=== PATIENT | male | born 1995 ===

== ENCOUNTER 2018-02-24 05:33 | Inpatient (IN) | payer MEDICAID, OTHER ==
[2018-02-24 05:34] VITALS: BMI 26.6
--- NOTE | 2018-02-24 05:40 | C.PDOC ---
History Of Present Illness 22 yr old male w/ hx of schizophrenia p/w hearing voices. Pt notes hearing voices over the past couple of days. States that he sometimes takes medications when he hears voices. Not on meds consistently for schizophrenia. No SI or HI. Voices are telling him to hurt himself. No fever, chills or night sweats No chest pain or sob No GI or complaints No abd pain No rashes No cough No other complaints <Chuy Terry - Last Filed: 02/24/18 05:49> <Chuy Terry - Last Filed: 02/24/18 05:49> <Magaly Pa - Last Filed: 02/24/18 10:48> Time Seen by Provider: 02/24/18 05:40 Past Medical History - Medical History PMH: Anxiety, Depression, Schizophrenia Denies: Diabetes, Hepatitis, HIV, HTN, Chronic Kidney Disease, Seizures, Sex ually Transmitted Disease - [facility] Procedures GROUP PSYCHOTHERAPY (06/30/17) INDIVIDUAL PSYCHOTHERAPY, BEHAVIORAL (06/30/17) INDIVIDUAL PSYCHOTHERAPY, COGNITIVE-BEHAVIORAL (01/06/17) Family History: States: Unknown Family Hx - Social History Hx Tobacco Use: Yes Hx Alcohol Use: No Hx Substance Use: No - Immunization History Hx Tetanus Toxoid Vaccination: No Hx Influenza Vaccination: No Hx Pneumococcal Vaccination: No <Chuy Terry - Last Filed: 02/24/18 05:49> Vital Signs: Last Vital Signs Temp 98.4 F 02/24/18 07:38 Pulse 108 H 02/24/18 07:38 Resp 15 02/24/18 07:38 BP 126/79 02/24/18 07:38 Pulse Ox 99 02/24/18 07:38 - [facility] Procedures GROUP PSYCHOTHERAPY (06/30/17) INDIVIDUAL PSYCHOTHERAPY, BEHAVIORAL (06/30/17) INDIVIDUAL PSYCHOTHERAPY, COGNITIVE-BEHAVIORAL (01/06/17) <Magaly Pa - Last Filed: 02/24/18 10:48> Review Of Systems Constitutional: Negative for: Fever, Chills, Sweats, Weakness, Malaise Eyes: Negative for: Pain, Vision Change ENT: Negative for: Ear Pain Cardiovascular: Negative for: Chest Pain, Palpitations Respiratory: Negative for: Cough, Shortness of Breath Gastrointestinal: Negative for: Nausea, Vomiting, Constipation, Melena Genitourinary: Negative for: Dysuria, Frequency, Hematuria Musculoskeletal: Negative for: Neck Pain, Shoulder Pain Skin: Negative for: Rash, Lesions, Jaundice Neurological: Negative for: Weakness, Numbness, Altered Mental Status Psych: Positive for: Other (hearing voices). Negative for: Anxiety, Depression, Suicidal ideation <Chuy Terry - Last Filed: 02/24/18 05:49> Physical Exam - Physical Exam Appears: Well, Non-toxic, No Acute Distress Skin: Normal Color, Warm, No Diaphoretic Head: Atraumatic, Normacephalic, No Tenderness, No Abrasion, No Laceration Eye(s): bilateral: Normal Inspection, PERRL, EOMI Ear(s): Bilateral: Normal Nose: Normal Oral Mucosa: Moist Tongue: Normal Appearing Lips: Normal Appearing Throat: Normal, No Erythema Neck: Normal, Normal ROM, No Midline Cervical Tenderness (no meningeal signs), Supple, Other Chest: Symmetrical, No Deformity Cardiovascular: Rhythm Regular Respiratory: Normal Breath Sounds Gastrointestinal/Abdominal: Normal Exam Back: Normal Inspection, No CVA Tenderness Extremity: Normal ROM Neurological/Psych: Oriented x3, Normal Speech, Normal Cognition, Normal Cranial Nerves, No Cerebellar Signs, Normal Motor Gait: Steady Extremity: Right: No Drift, Left: No Drift, Upper: No Drift, Lower: No Drift <Chuy Terry - Last Filed: 02/24/18 05:49> ED Course And Treatment - Laboratory Results Result Diagrams: 02/24/18 09:52 02/24/18 06:16 ECG: Interpreted By Ga ECG Rhythm: Sinus Tachycardia Rate From EC O2 Sat by Pulse Oximetry: 99 Pulse Ox Interpretation: Normal - Radiology CXR: Interpreted by Me CXR Interpretation: Yes: No Acute Disease <Magaly Pa - Last Filed: 02/24/18 10:48> Progress - Re-Evaluation Re-evaluation Note: 02/24/18 07:00 s/o FROM DR TERRY PENDING FLU, CXR, IVF. WBC 21. NO FEVER, FOCAL SIGNS INFXN. APPEARS COMFORTABLE NONTOXIC 02/24/18 08:06 HR 100 S/P NS 1L. NEG CXR, FLU 02/24/18 10:27 EXAM UNCH INITIAL. HR IMPROVED S/O NS X 2L. NO FEVER. NO SIGNS INFXN DURING ER EVAL. MED CLEAR FOR CRISIS EVAL, RECOMMEND MEDICINE CONSULT PRN FOR FU CX, WBC. - Data Reviewed Data Reviewed: Lab, Diagnostic imaging, EKG, Old records <Magaly Pa - Last Filed: 02/24/18 10:48> Medical Decision Making Medical Decision Makin yr old male w/ hx of schizophrenia p/w hearing voices. Intermittently on meds. No meningeal signs. no fall or trauma. Will seek medical clearance. Crisis to see pt EKG 108, NSR. no stemi <Chuy Terry - Last Filed: 02/24/18 05:49> Disposition <Chuy Terry - Last Filed: 02/24/18 05:49> Counseled Patient/Family Regarding: Studies Performed, Diagnosis - Disposition Disposition Time: 10:38 <Magaly Pa - Last Filed: 02/24/18 10:48> - Disposition Disposition: HOSPITALIZED Condition: SERIOUS - Clinical Impression Clinical Impression: Schizoaffective disorder
[2018-02-24 06:10] LABS: BASO # 0.1 K/uL (0.0-0.2); BASO % 0.3 % (0.0-2.0); EOS # 0.1 K/uL (0.0-0.7); EOS % 0.3 % (0.0-4.0); LYMPH # 1.6 K/uL (1.0-4.3); LYMPH % 7.3 % (20.0-40.0); MEAN CELL VOLUME 72.3 fL (80.0-94.0); MEAN CORPUSCULAR HEMOGLOBIN 24.3 pg (27.0-31.0); MEAN CORPUSCULAR HGB CONC 33.6 g/dL (33.0-37.0); MEAN PLATELET VOLUME 8.6 fL (7.2-11.7); MONO # 1.2 K/uL (0.0-0.8); MONO % 5.4 % (0.0-10.0); NEUT # 18.6 K/uL (1.8-7.0); NEUT % 86.7 % (50.0-75.0); NRBC % 0.1 % (0.0-2.0); PLATELET COUNT 259 K/uL (130-400); RBC 5.78 Mil/uL (4.40-5.90); RED CELL DISTRIBUTION WIDTH 14.2 % (11.5-14.5); WHITE BLOOD COUNT 21.5 K/uL (4.8-10.8)
[2018-02-24 06:22] LABS: GRANULAR CAST 7 /lpf (0-1); SQUAMOUS EPITHIAL < 1 /hpf (0-5); URINE BACTERIA RARE (<OCC); URINE BILIRUBIN NEGATIVE (NEGATIVE); URINE BLOOD NEGATIVE (NEGATIVE); URINE CLARITY Clear (Clear); URINE COLOR Yellow (YELLOW); URINE GLUCOSE (UA) NORMAL (Normal); URINE LEUKOCYTE ESTERASE NEG Leu/uL (Negative); URINE PROTEIN 1+ mg/dL (NEGATIVE); URINE UROBILINOGEN NORMAL mg/dL (0.2-1.0)
[2018-02-24 06:31] LABS: BARBITURATES, UR NEGATIVE (NEGATIVE); BENZODIAZEPINES, UR NEGATIVE (NEGATIVE); OPIATES, UR NEGATIVE (NEGATIVE); PHENCYCLIDINE, UR NEGATIVE (NEGATIVE)
[2018-02-24 06:41] LABS: ACETAMINOPHEN < 10.0 ug/mL (10.0-30.0); SALICYLATE < 1.0 mg/dL 1
[2018-02-24 06:43] LABS: ALB/GLOB RATIO 1.2 (1.0-2.1); ALBUMIN 4.5 g/dL (3.5-5.0); ALT/SGPT 47 U/L (21-72); AST/SGOT 31 U/L (17-59); BLOOD UREA NITROGEN 7 mg/dL (9-20); CALCIUM 8.9 mg/dl (8.6-10.4); GFR NON-AFRICAN AMERICAN > 60
[2018-02-24] MEDS ORDERED: Sodium Chloride 0.9% 1,000 ML IV ONE (07:56)
[2018-02-24 08:14] LABS: BANDS 1 % (0-2); LYMPHOCYTE 6 % (20-40); MONOCYTE 4 % (0-10); NEUTROPHIL 89 % (50-75); TOTAL CELLS COUNTED 100
[2018-02-24 08:15] LABS: PLATELET ESTIMATE NORMAL (NORMAL)
[2018-02-24] MEDS: Sodium Chloride 0.9% 1,000 ML IV SCH (08:26)
--- NOTE | 2018-02-24 09:49 | RAD ---
HISTORY: 22k wbc COMPARISON: Chest x-ray performed 11/22/15 TECHNIQUE: Chest PA and lateral FINDINGS: LUNGS: No focal consolidation. Please note that chest x-ray has limited sensitivity for the detection of pulmonary masses. PLEURA: No significant pleural effusion identified. No definite pneumothorax . CARDIOVASCULAR: The cardiomediastinal silhouette appears within normal limits of size. No atherosclerotic calcification present. OSSEOUS STRUCTURES: No acute osseous abnormality identified. VISUALIZED UPPER ABDOMEN: Elevation of the right hemidiaphragm. OTHER FINDINGS: None. IMPRESSION: No focal consolidation.
[2018-02-24 09:55] LABS: HEMOGLOBIN 12.9 g/dL (12.0-18.0); MEAN CELL VOLUME 72.6 fL (80.0-94.0); MEAN CORPUSCULAR HEMOGLOBIN 24.1 pg (27.0-31.0); MEAN CORPUSCULAR HGB CONC 33.2 g/dL (33.0-37.0); MEAN PLATELET VOLUME 8.2 fL (7.2-11.7); RBC 5.34 Mil/uL (4.40-5.90); RED CELL DISTRIBUTION WIDTH 14.4 % (11.5-14.5); WHITE BLOOD COUNT 20.1 K/uL (4.8-10.8)
[2018-02-24 11:11] VITALS: O2SAT 98
--- NOTE | 2018-02-24 12:02 | PCM.BM ---
<Ginger Bhakta - Last Filed: 02/24/18 12:00> Treatment Plan Problems - Problems identified on initial assessmt Auditory Hallucinations Date Initiated: 02/24/18 Time Initiated: 12:01 Assessment reference: NA Status: Active Medication Non compliance Date Initiated: 02/24/18 Time Initiated: 12:02 Assessment reference: NA Status: Active Treatment assets and liabiliti Patient Assests: cooperative, ADL independent, physically healthy, good support system, negotiates basic needs, cognitively intact (limited) - Milieu Protocol Maintain good personal hygiene: daily Encourage regular showers, daily Remind patient to perform daily oral care, daily Assist patient to perform ADL's Conduct patient checks and document Observation sheet: Q15 minutes Maintain personal safety: every shift Educate patient to report safety concerns to staff, every shift Monitor environment for contraband/sharps Medication safety: Monitor for expected outcome, potential side effects: every shift, Assess barriers to learning: every shift, Assess readiness for medication education: every shift <Nicanor Glasgow - Last Filed: 02/25/18 18:11> - Diagnosis (1) Schizoaffective disorder, bipolar type Status: Acute Interventions: 02/25/18 18:11 * Assess/adjust medications daily and /or as needed * See patient on an individual basis 7x/week to assess status of hallucinations * Discuss risks, benefits, side effects and alternatives of medications <Tanja Gomez - Last Filed: 02/27/18 11:27> Family Contact Family involvement: Family/SO is involved Family contact: Patient agrees to contact Family contact name: Umu Deanne Family contacted how many times per week?: 2 - Goals for Treatment Patient goals for treatment: "I don't know." Patient's family/SO goals for treatment: For pt to be stabilized psychiatrically. Discharge/Continuing Care - Education Needs Education Needs: Patient Medication, Patient Coping Skills - Discharge Discharge Criteria: Tolerates medication w/o severe side effects, Free of agitation, Reduction of target symptoms Discharge to:: Home, With Family - Treatment Team Participation Discussed with Family/SO: No Was Patient/Family/SO present at Treatment Team Meeting: Yes
[2018-02-24] MEDS: Divalproex 500 mg DR Tab PO SCH (19:01)
[2018-02-25] MEDS: Divalproex 500 mg DR Tab PO SCH ×2 (10:00→17:04)
--- NOTE | 2018-02-25 18:06 | PCM.PSYCH ---
Initial Psychiatric Evaluation - Initial Psychiatric Evaluation Type of Admission: Voluntary Legal Status: Capacity Chief Complaint (in patient's own words): I was aggressive, Place part being here. History of Present Illness and Precipitating Events: Patient is a 22 years old, single, unemployed, male with history of schizoaffective disorder bipolar type was admitted due to worsening of his symptoms of paranoia and aggression. Patient reported that he was noncompliant with his treatment for last few days, including Depakote and Risperdal. Started becoming stressed and aggressive. Patient will have his maternal grandmother, pushed her, became very aggressive and agitated. Police was called and patient was brought to [facility] for evaluation and treatment. Patient was a poor historian, was difficult to get answers from him. It appeared that he is internally preoccupied as he was giving answers after walking on his shoulders. Most of the history was obtained from previous record. Patient has history of cannabis use many years ago. Patient denied use of any other drugs including alcohol, cocaine and heroin. Denied smoking cigarettes. Patient reported that he was arrested and was in long term for multiple times for domestic issues. Last time he was in long term for about 2 months ago, not on probation. Patient was born in [place], has high school graduation, not working. Patient lives with his maternal grandmother. Never and has no children. His height is 5 feet 8 inches and his weight is 200 pounds. Current Medications: Active Medications Generic Name Dose Route Start Last Admin Trade Name Freq PRN Reason Stop Dose Admin Divalproex Sodium 500 mg 02/24/18 18:15 02/25/18 17:[address] PO 500 mg BID ODELL Administration Haloperidol 5 mg 02/24/18 18:12 Haldol PO Q6 PRN Agitation Sodium Chloride 1,000 mls @ 100 mls/hr 02/24/18 07:00 02/24/18 08:26 Sodium Chloride 0.9% IV 100 mls/hr .Q10H ODELL Administration Risperidone 2 mg 02/24/18 18:15 02/25/18 17:04 Risperdal Tab PO 2 mg BID ODELL Administration Trazodone HCl 50 mg 02/24/18 22:00 02/24/18 22:27 Desyrel PO Not Given HS ODELL Past Psychiatric History - Past Psychiatric History Previous Treatment History: None History of Abuse: None reported History of ETOH/Drug Use: See HPI History of Family Illness: Reported his mother has history of bipolar disorder. Pertinent Medical Hx (Current Medical&Sleep Prob, Allergies): Allergies Allergy/AdvReac Type Severity Reaction Status Date / Time aspirin Allergy SWELLING Verified 06/30/17 09:31 ibuprofen [From Motrin] Allergy SWELLING Verified 06/30/17 09:31 Benztropine [Cogentin] 0.5 mg PO BID 30 Days #60 tab 07/12/17 Divalproex [Depakote DR(*BID*)] 500 mg PO DAILY 30 Days #30 tcp 07/12/17 Divalproex [Depakote DR(*BID*)] 750 mg PO HS 30 Days #90 tcp 07/12/17 risperiDONE [RisperDAL Tab] 3 mg PO BID 30 Days #60 tab 07/12/17 Review of Systems - Psychiatric Psychiatric: As Per HPI, Depression, Difficulty Concentrating, Irritability, Paranoia Mental Status Examination - Personal Presentation Personal Presentation: Looks stated age - Affect Affect: Blunted - Motor Activity Motor Activity: Calm - Reliability in Providing Information Reliability in Providing Information: Fair - Speech Speech: Relevant - Mood Mood: Neutral - Formal Thought Process Formal Thought Process: Paranoia, Loosening of associations - Hallucinations/Delusions Hallucinations: Other (None reported) Delusions: Other - Obsessions/Compulsions Obsessions: None Compulsions: None - Cognitive Functions Orientation: Person, Place, Situation, Time Sensorium: Alert Attention/Concentration: Attentive Abstract Thinking: [place] Estimate of Intelligence: Average Judgement: Imparied, as evidence by: Lack of insight into illness Memory: Recent impaired, as evidence by: Inability to recall events of the day, Remote impaired as evidenced by: Inability to recall sig life events - Risk Risk: Diminished functioning - Strength & Assets Inventory Strength & Assets Inventory: Family support - Limitations Limitations: Other (Lives with maternal grandmother) DSM 5 DX - DSM 5 DSM 5 Diagnosis: Schizoaffective disorder bipolar type - Recommended/Plan of Treatment Treatment Recommendations and Plan of Treatment: Patient education. Supportive therapy. Continue treatment with Depakote, Risperdal and other when necessary medications. Projected ELOS: 8-10 days - Smoking Cessation Smoking Cessation Initiated: No Reason for not providing: Patient doesn't smoke cigarettes
[2018-02-26] MEDS: Divalproex 500 mg DR Tab PO SCH ×2 (09:43→18:02)
[2018-02-26] MEDS: Sodium Chloride 0.9% 1,000 ML IV SCH (10:06)
--- NOTE | 2018-02-26 12:40 | PCM.PYCHPN ---
Psychiatric Progress Note - Psychiatric Progress Note Patient seen today, length of contact: 15 min Patient Chief Complaint: "Tired" Problems Identified/Issues Discussed: The pt is seen, chart reviewed, case discussed with staff. The pt is compliant with medications and reports no side-effects. Symptoms are improving but needs more time to stabilize. Pt does NOT attend groups and activities. Mostly in bed Support given, psycho-education provided. Medication Change: No Medical Record Reviewed: Yes Mental Status Examination - Cognitive Function Orientation: Person, Place, Situation, Time Memory: Impaired Attention: Poor Concentration: Poor Association: WNL Fund of Knowledge: Poor - Mood Mood: Depressed - Affect Affect: Blunted - Speech Speech: Appropriate (slowed today) - Formal Thought Process Formal Thought Process: Paranoia - Suicidal Ideation Suicidal Ideation: No - Homicidal Ideation Homicidal Ideation: No Goal/Treatment Plan - Goal/Treatment Plan Need for Continued Stay: Discharge may exacerbated symptoms, Severe functional impairment Progress Toward Problem(s) and Goals/Treatment Plan: Continue medications Support and psychoeducation daily Attend groups and activities daily After care planning by CASSANDRA
[2018-02-27] MEDS: Divalproex 500 mg DR Tab PO SCH ×2 (10:12→17:19)
--- NOTE | 2018-02-27 16:03 | PCM.PYCHPN ---
Psychiatric Progress Note - Psychiatric Progress Note Patient seen today, length of contact: 15 min Patient Chief Complaint: I'm not feeling much better. Problems Identified/Issues Discussed: Patient seen, chart reviewed, case discussed with the staff. Issues related to illness and treatment were discussed with the patient and staff. Reported compliant with treatment with no adverse effects. Tolerating treatment very well. Reported not feeling better. Staff reported that earlier patient appeared internally preoccupied. Awake, alert and oriented 3. Calm and cooperative with good eye contact. Mood reported as depressed. Affect appropriate. Treatment discussed with the patient. Needs more time for stabilization. Aftercare discussed with the patient. Patient maternal grandmother has power of salt lifter for the patient. We will contact her grandmother to get more information. Denied any delusions, auditory or visual hallucinations, suicidal ideations or homicidal ideations at the time of evaluation. Medical Problems: None reported Diagnostic Results: Reviewed Medication Change: No Medical Record Reviewed: Yes Mental Status Examination - Cognitive Function Orientation: Person, Place, Situation, Time Memory: Intact Attention: WNL Concentration: WNL Association: WNL Fund of Knowledge: [facility] Decription of patient's judgement and insights: Fair - Mood Mood: Depressed - Affect Affect: Blunted - Speech Speech: Appropriate (slowed today) - Formal Thought Process Formal Thought Process: Paranoia - Suicidal Ideation Suicidal Ideation: No - Homicidal Ideation Homicidal Ideation: No Goal/Treatment Plan - Goal/Treatment Plan Need for Continued Stay: Remain at risks for inpatient hospitalization, Discharge may exacerbated symptoms, Severe functional impairment Progress Toward Problem(s) and Goals/Treatment Plan: Patient education. Supportive therapy. Continue treatment as before. Estimated Date of D/C: 03/03/18 - Smoking Cessation Smoking Cessation Initiated: No Reason for not providing: Patient doesn't smoke cigarettes
--- NOTE | 2018-02-27 19:48 | CARD ---
APPROVED REPORT Date of service: 02/24/2018 EKG Measurement Heart [id number] <Conclusion> Sinus tachycardia Otherwise normal ECG
[2018-02-28] MEDS: Divalproex 500 mg DR Tab PO SCH ×2 (10:02→18:00)
--- NOTE | 2018-02-28 23:30 | PCM.PYCHPN ---
Psychiatric Progress Note - Psychiatric Progress Note Patient seen today, length of contact: 15 min Patient Chief Complaint: I'm feeling better. Problems Identified/Issues Discussed: Patient seen, chart reviewed, case discussed with the staff. Issues related to illness and treatment were discussed with the patient and staff. Reported compliant with treatment with no adverse effects. Tolerating treatment very well. Reported feeling better. Patient wants to be discharged from the hospital. Awake, alert and oriented 3. Calm and cooperative with good eye contact. Mood reported as depressed. Affect appropriate. Treatment discussed with the patient. Needs more time for stabilization. Aftercare discussed with the patient. Patient maternal grandmother has power of patent prosecution attorney for the patient. Contacted patient's maternal grandmother, who reported that she should be notified before patient's discharge from the hospital. Due to patient's aggression, grandmother want to drop him to his father who lives in [place]. Denied any delusions, auditory or visual hallucinations, suicidal ideations or homicidal ideations at the time of evaluation. Medical Problems: None reported Diagnostic Results: Reviewed DSM 5 Symptoms Update: Some improvement with treatment Medication Change: No Medical Record Reviewed: Yes Mental Status Examination - Cognitive Function Orientation: Person, Place, Situation, Time Memory: Intact Attention: WNL Concentration: WNL Association: [facility] Fund of Knowledge: [facility] Decription of patient's judgement and insights: Fair - Mood Mood: Depressed (Less than before) - Affect Affect: Blunted - Speech Speech: Appropriate (slowed today) - Formal Thought Process Formal Thought Process: Paranoia - Suicidal Ideation Suicidal Ideation: No - Homicidal Ideation Homicidal Ideation: No Goal/Treatment Plan - Goal/Treatment Plan Need for Continued Stay: Remain at risks for inpatient hospitalization, Discharge may exacerbated symptoms, Severe functional impairment Progress Toward Problem(s) and Goals/Treatment Plan: Patient education. Supportive therapy. Continue treatment as before. Estimated Date of D/C: 03/03/18 - Smoking Cessation Smoking Cessation Initiated: No
[2018-03-01] MEDS: Divalproex 500 mg DR Tab PO SCH ×2 (10:42→17:54)
[2018-03-01] MEDS: Sodium Chloride 0.9% 1,000 ML IV SCH ×3 (10:43→11:12)
--- NOTE | 2018-03-01 12:25 | PCM.PYCHPN ---
Psychiatric Progress Note - Psychiatric Progress Note Patient seen today, length of contact: 15 min Patient Chief Complaint: I'm feeling better. Problems Identified/Issues Discussed: Patient seen, chart reviewed, case discussed with the staff. Issues related to illness and treatment were discussed with the patient and staff. Reported compliant with treatment with no adverse effects. Tolerating treatment very well. Reported feeling better. Patient wants to be discharged from the hospital. Staff reported that yesterday afternoon patient had auditory and visual hallucinations, was isolative most of the time. We will increase the dose of risperidone to 3 mg twice a day and will also start Cogentin 1 mg twice a day. Patient agreed. Awake, alert and oriented 3. Calm and cooperative with good eye contact. Mood reported as depressed. Affect appropriate. Treatment discussed with the patient. Needs more time for stabilization. Aftercare discussed with the patient. Denied any delusions, auditory or visual hallucinations, suicidal ideations or homicidal ideations at the time of evaluation. Medical Problems: None reported Diagnostic Results: Reviewed DSM 5 Symptoms Update: Some improvement with treatment Medication Change: Yes (Dose of Risperdal increased to 3 mg twice a day.) Medical Record Reviewed: Yes Mental Status Examination - Cognitive Function Orientation: Person, Place, Situation, Time Memory: Intact Attention: WNL Concentration: WNL Association: [facility] Fund of Knowledge: [facility] Decription of patient's judgement and insights: Fair - Mood Mood: Neutral - Affect Affect: Flat - Speech Speech: Appropriate (slowed today) - Formal Thought Process Formal Thought Process: Paranoia - Suicidal Ideation Suicidal Ideation: No - Homicidal Ideation Homicidal Ideation: No Goal/Treatment Plan - Goal/Treatment Plan Need for Continued Stay: Remain at risks for inpatient hospitalization, Discharge may exacerbated symptoms, Severe functional impairment Progress Toward Problem(s) and Goals/Treatment Plan: Patient education. Supportive therapy. We will increase the dose of risperidone to 3 mg twice a day. We will start Cogentin 1 mg twice a day. Continue rest of the treatment as before. Estimated Date of D/C: 03/03/18 - Smoking Cessation Smoking Cessation Initiated: No Reason for not providing: Patient does not smoke cigarettes.
[2018-03-02] MEDS: Divalproex 500 mg DR Tab PO SCH ×2 (10:51→18:30)
--- NOTE | 2018-03-02 23:20 | PCM.PYCHPN ---
Psychiatric Progress Note - Psychiatric Progress Note Patient seen today, length of contact: 15 min Patient Chief Complaint: I'm feeling better. Problems Identified/Issues Discussed: Patient seen, chart reviewed, case discussed with the staff. Issues related to illness and treatment were discussed with the patient and staff. Reported compliant with treatment with no adverse effects. Tolerating treatment very well. Reported feeling better. Patient wants to be discharged from the hospital. Had family meeting. Maternal grandmothermily meeting with maternal grand mother. Maternal grandmother wants to get him to [place] to dropped him to his father, after discharge from the hospital. Offered grandmother long-acting injection, will think about that. His grandmother has power of energy attorney for patient. Awake, alert and oriented 3. Calm and cooperative with good eye contact. Mood reported as depressed. Affect appropriate. Treatment discussed with the patient. Needs more time for stabilization. Aftercare discussed with the patient. Denied any delusions, auditory or visual hallucinations, suicidal ideations or homicidal ideations at the time of evaluation. Medical Problems: None reported Diagnostic Results: Reviewed DSM 5 Symptoms Update: Some improvement with treatment. Medication Change: No Medical Record Reviewed: Yes Mental Status Examination - Cognitive Function Orientation: Person, Place, Situation, Time Memory: Intact Attention: WNL Concentration: WNL Association: [facility] Fund of Knowledge: [facility] Decription of patient's judgement and insights: Fair - Mood Mood: Neutral - Affect Affect: Flat - Speech Speech: Appropriate (slowed today) - Formal Thought Process Formal Thought Process: Paranoia - Suicidal Ideation Suicidal Ideation: No - Homicidal Ideation Homicidal Ideation: No Goal/Treatment Plan - Goal/Treatment Plan Need for Continued Stay: Remain at risks for inpatient hospitalization, Discharge may exacerbated symptoms, Severe functional impairment Progress Toward Problem(s) and Goals/Treatment Plan: Patient education. Supportive therapy. Continue treatment as before. Estimated Date of D/C: 03/03/18 - Smoking Cessation Smoking Cessation Initiated: No
[2018-03-03] MEDS: Divalproex 500 mg DR Tab PO SCH ×2 (09:30→17:26)
--- NOTE | 2018-03-03 16:53 | PCM.PYCHPN ---
Psychiatric Progress Note - Psychiatric Progress Note Patient seen today, length of contact: 15 min Patient Chief Complaint: I'm feeling better. Problems Identified/Issues Discussed: Patient seen, chart reviewed, case discussed with the staff. Issues related to illness and treatment were discussed with the patient and staff. Reported compliant with treatment with no adverse effects. Tolerating treatment very well. Reported feeling better. Patient wants to be discharged from the hospital. Staff reported that patient was agitated during night and was not sleeping. Patient denied. Awake, alert and oriented 3. Calm and cooperative with good eye contact. Mood reported as depressed. Affect appropriate. Treatment discussed with the patient. Needs more time for stabilization. Aftercare discussed with the patient. Denied any delusions, auditory or visual hallucinations, suicidal ideations or homicidal ideations at the time of evaluation. Medical Problems: None reported Diagnostic Results: Reviewed DSM 5 Symptoms Update: Some improvement with treatment Medication Change: No Medical Record Reviewed: Yes Mental Status Examination - Cognitive Function Orientation: Person, Place, Situation, Time Memory: Intact Attention: WNL Concentration: WNL Association: WNL Fund of Knowledge: [facility] Decription of patient's judgement and insights: Fair - Mood Mood: Neutral - Affect Affect: Flat - Speech Speech: Appropriate (slowed today) - Formal Thought Process Formal Thought Process: Paranoia - Suicidal Ideation Suicidal Ideation: No - Homicidal Ideation Homicidal Ideation: No Goal/Treatment Plan - Goal/Treatment Plan Need for Continued Stay: Remain at risks for inpatient hospitalization, Discharge may exacerbated symptoms, Severe functional impairment Progress Toward Problem(s) and Goals/Treatment Plan: Patient education. Supportive therapy. Continue treatment as before. Estimated Date of D/C: 03/07/18 - Smoking Cessation Smoking Cessation Initiated: No
[2018-03-04] MEDS: Divalproex 500 mg DR Tab PO SCH ×2 (09:36→18:16)
--- NOTE | 2018-03-04 20:28 | PCM.PYCHPN ---
Psychiatric Progress Note - Psychiatric Progress Note Patient seen today, length of contact: 15 min Patient Chief Complaint: I'm feeling better. Problems Identified/Issues Discussed: Patient seen, chart reviewed, case discussed with the staff. Issues related to illness and treatment were discussed with the patient and staff. Reported compliant with treatment with no adverse effects. Tolerating treatment very well. Reported feeling better. Patient wants to be discharged from the hospital. Staff reported that patient was agitated during night and was not sleeping. Awake, alert and oriented 3. Calm and cooperative with good eye contact. Mood reported as okay. Affect inappropriate, appeared flat. Treatment discussed with the patient. Needs more time for stabilization. Aftercare discussed with the patient. Denied any delusions, auditory or visual hallucinations, suicidal ideations or homicidal ideations at the time of evaluation. Medical Problems: None reported Diagnostic Results: Reviewed DSM 5 Symptoms Update: Some improvement with treatment. Medication Change: No Medical Record Reviewed: Yes Mental Status Examination - Cognitive Function Orientation: Person, Place, Situation, Time Memory: Intact Attention: WNL Concentration: WNL Association: WNL Fund of Knowledge: [facility] Decription of patient's judgement and insights: Fair - Mood Mood: Neutral - Affect Affect: Flat - Speech Speech: Appropriate (slowed today) - Formal Thought Process Formal Thought Process: Paranoia - Suicidal Ideation Suicidal Ideation: No - Homicidal Ideation Homicidal Ideation: No Goal/Treatment Plan - Goal/Treatment Plan Need for Continued Stay: Remain at risks for inpatient hospitalization, Discharge may exacerbated symptoms, Severe functional impairment Progress Toward Problem(s) and Goals/Treatment Plan: Patient education. Supportive therapy. Continue treatment as before. Estimated Date of D/C: 03/07/18 - Smoking Cessation Smoking Cessation Initiated: No
[2018-03-05] MEDS: Divalproex 500 mg DR Tab PO SCH ×3 (09:44→18:16)
--- NOTE | 2018-03-05 15:59 | PCM.PYCHPN ---
Psychiatric Progress Note - Psychiatric Progress Note Patient seen today, length of contact: 15 min Patient Chief Complaint: I'm feeling better. Problems Identified/Issues Discussed: Patient seen, chart reviewed, case discussed with the staff. Issues related to illness and treatment were discussed with the patient and staff. Reported compliant with treatment with no adverse effects. Tolerating treatment very well. Reported feeling better. Staff reported that patient was agitated again during night and was not sleeping. Later patient received Ativan and slept later part of the night. Awake, alert and oriented 3. Calm and cooperative with good eye contact. Mood reported as okay. Affect inappropriate, appeared flat. Treatment discussed with the patient. Needs more time for stabilization. Aftercare discussed with the patient. Denied any delusions, auditory or visual hallucinations, suicidal ideations or homicidal ideations at the time of evaluation. Medical Problems: None reported Diagnostic Results: Reviewed Medication Change: No Medical Record Reviewed: Yes Mental Status Examination - Cognitive Function Orientation: Person, Place, Situation, Time Memory: Intact Attention: WNL Concentration: WNL Association: WNL Fund of Knowledge: [facility] Decription of patient's judgement and insights: Fair - Mood Mood: Neutral - Affect Affect: Flat - Speech Speech: Appropriate (slowed today) - Formal Thought Process Formal Thought Process: Paranoia - Suicidal Ideation Suicidal Ideation: No - Homicidal Ideation Homicidal Ideation: No Goal/Treatment Plan - Goal/Treatment Plan Need for Continued Stay: Remain at risks for inpatient hospitalization, Discharge may exacerbated symptoms, Severe functional impairment Progress Toward Problem(s) and Goals/Treatment Plan: Patient education. Supportive therapy. Continue treatment as before. Estimated Date of D/C: 03/07/18 - Smoking Cessation Smoking Cessation Initiated: No
[2018-03-06] MEDS: Divalproex 500 mg DR Tab PO SCH ×2 (09:37→18:15)
--- NOTE | 2018-03-06 10:46 | PCM.PYCHPN ---
Psychiatric Progress Note - Psychiatric Progress Note Patient seen today, length of contact: 15 min Patient Chief Complaint: I am feeling little better Medication Change: Yes Medical Record Reviewed: Yes Mental Status Examination - Cognitive Function Orientation: Person, Place, Situation, Time Memory: Intact Attention: WNL Concentration: Poor Association: Loose Fund of Knowledge: WNL - Mood Mood: Anxious - Affect Affect: Broad - Speech Speech: Appropriate (slowed today) - Formal Thought Process Formal Thought Process: Paranoia, Loosening of associations - Suicidal Ideation Suicidal Ideation: No - Homicidal Ideation Homicidal Ideation: No Goal/Treatment Plan - Goal/Treatment Plan Need for Continued Stay: Remain at risks for inpatient hospitalization, Discharge may exacerbated symptoms, Severe functional impairment Progress Toward Problem(s) and Goals/Treatment Plan: Schizoaffective disorder bipolar type Patient education. Supportive therapy. Depakote, Risperdal and other when necessary medications. Estimated Date of D/C: 03/07/18
--- NOTE | 2018-03-06 12:08 | PCM.BM ---
<JovannyTanja Iverson - Last Filed: 03/06/18 12:08> Treatment Plan Problems - Problems identified on initial assessmt Auditory Hallucinations Date Initiated: 02/24/18 Time Initiated: 12:01 Assessment reference: NA Status: Active Medication Non compliance Date Initiated: 02/24/18 Time Initiated: 12:02 Assessment reference: NA Status: Active Treatment assets and liabiliti Patient Assests: cooperative, ADL independent, physically healthy, good support system, negotiates basic needs, cognitively intact (limited) - Milieu Protocol Maintain good personal hygiene: daily Encourage regular showers, daily Remind patient to perform daily oral care, daily Assist patient to perform ADL's Conduct patient checks and document Observation sheet: Q15 minutes Maintain personal safety: every shift Educate patient to report safety concerns to staff, every shift Monitor environment for contraband/sharps Medication safety: Monitor for expected outcome, potential side effects: every shift, Assess barriers to learning: every shift, Assess readiness for medication education: every shift Milieu Narrative: Patient education. Supportive therapy. Continue treatment as before. Family Contact Family involvement: Family/SO is involved Family contact: Patient agrees to contact Family contact name: Umu Alicea Family contacted how many times per week?: 2 - Goals for Treatment Patient goals for treatment: "I don't know." Patient's family/SO goals for treatment: For pt to be stabilized psychiatrically. Discharge/Continuing Care - Education Needs Education Needs: Patient Medication, Patient Coping Skills - Discharge Discharge Criteria: Tolerates medication w/o severe side effects, Free of agitation, Reduction of target symptoms Discharge to:: Home, With Family - Treatment Team Participation Patient/Family/SO Statement: Patient education. Supportive therapy. Continue treatment as before. Discussed with Family/SO: No Was Patient/Family/SO present at Treatment Team Meeting: Yes Treatment Plan Review - Problem Auditory Hallucinations Time Initiated: 12:01 Medication Non compliance Time Initiated: 12:02 - Discharge / Continuing Care Discharge to:: Home, With Family Behavioral Health Services: Partial hospital Health Needs: Medications/Rx, Alcohol/Drug treatment <Brissa Bee - Last Filed: 03/06/18 14:13> Treatment Plan Review - Problem Auditory Hallucinations Date Initiated: 03/06/18 Progress toward outcomes: improved Medication Non compliance Date Initiated: 03/06/18 Progress toward outcomes: improved <Rylee Salter - Last Filed: 03/06/18 21:10> - Diagnosis (1) Schizoaffective disorder, bipolar type Status: Acute Interventions: 02/25/18 18:11 * Assess/adjust medications daily and /or as needed * See patient on an individual basis 7x/week to assess status of hallucinations * Discuss risks, benefits, side effects and alternatives of medications 03/06/18 21:10 * Assess/adjust medications daily and /or as needed * See patient on an individual basis 7x/week to assess status of hallucinations * Discuss risks, benefits, side effects and alternatives of medications *
[2018-03-07] MEDS: Divalproex 500 mg DR Tab PO SCH ×2 (10:09→17:15)
--- NOTE | 2018-03-07 10:26 | PCM.PYCHPN ---
Psychiatric Progress Note - Psychiatric Progress Note Patient seen today, length of contact: 15 min Patient Chief Complaint: I am feeling little better Medication Change: Yes Medical Record Reviewed: Yes Mental Status Examination - Cognitive Function Orientation: Person, Place, Situation, Time Memory: Intact Attention: WNL Concentration: Poor Association: Loose Fund of Knowledge: WNL - Mood Mood: Anxious - Affect Affect: Broad - Speech Speech: Appropriate (slowed today) - Formal Thought Process Formal Thought Process: Paranoia, Loosening of associations - Suicidal Ideation Suicidal Ideation: No - Homicidal Ideation Homicidal Ideation: No Goal/Treatment Plan - Goal/Treatment Plan Need for Continued Stay: Remain at risks for inpatient hospitalization, Discharge may exacerbated symptoms, Severe functional impairment Progress Toward Problem(s) and Goals/Treatment Plan: Schizoaffective disorder bipolar type Patient education. Supportive therapy. Depakote 500 mg PO bid Risperdal 4 mg PO BID when necessary medications Start Haldol 5 mg po BID Estimated Date of D/C: 03/07/18
[2018-03-08 06:22] VITALS: RESP 18
[2018-03-08] MEDS: Divalproex 500 mg DR Tab PO SCH ×2 (10:28→17:40)
[2018-03-09 06:35] VITALS: BP 118/79; PULSE 87; TEMP 97.8
[2018-03-09] MEDS: Divalproex 500 mg DR Tab PO SCH (09:34)
--- NOTE | 2018-03-09 10:42 | PCM.PYCHPN ---
Psychiatric Progress Note - Psychiatric Progress Note Patient seen today, length of contact: 15 min Patient Chief Complaint: I am feeling little better Problems Identified/Issues Discussed: Pt seen and evaluated Medication Change: Yes Medical Record Reviewed: Yes Mental Status Examination - Cognitive Function Orientation: Person, Place, Situation, Time Memory: Intact Attention: WNL Concentration: Poor Association: WNL Fund of Knowledge: WNL - Mood Mood: Anxious - Affect Affect: Broad - Speech Speech: Appropriate (slowed today) - Formal Thought Process Formal Thought Process: Paranoia - Suicidal Ideation Suicidal Ideation: No - Homicidal Ideation Homicidal Ideation: No Goal/Treatment Plan - Goal/Treatment Plan Need for Continued Stay: Remain at risks for inpatient hospitalization, Discharge may exacerbated symptoms, Severe functional impairment Progress Toward Problem(s) and Goals/Treatment Plan: Schizoaffective disorder bipolar type Patient education. Supportive therapy. Depakote 500 mg PO bid Risperdal 4 mg PO BID when necessary medications Increase Haldol 10 mg po BID Estimated Date of D/C: 03/08/18 - Smoking Cessation Smoking Cessation Initiated: No
--- NOTE | 2018-03-09 10:44 | PCM.PYCHDC ---
Mental Status Examination - Mental Status Examination Orientation: Person, Place, Situation, Time Memory: Intact Mood: Neutral Affect: Constricted Speech: Soft Attention: WNL Concentration: WNL Association: WNL Fund of Knowledge: WNL Formal Thought Process: No Impairment Description of patient's judgement and insight: good, fair Psychotic Thoughts and Behaviors: denies any AVH Suicidal Ideation: No Current Homicidal Ideation?: No Discharge Summary - Discharge Note Reason for Hospitalization: Patient is a 22 years old, single, unemployed, male with history of schizoaffective disorder bipolar type was admitted due to worsening of his symptoms of paranoia and aggression. Patient reported that he was noncompliant with his treatment for last few days, including Depakote and Risperdal. Started becoming stressed and aggressive. Patient will have his maternal grandmother, pushed her, became very aggressive and agitated. Police was called and patient was brought to [facility] for evaluation and treatment. Patient was a poor historian, was difficult to get answers from him. It appeared that he is internally preoccupied as he was giving answers after walking on his shoulders. Most of the history was obtained from previous record. Patient has history of cannabis use many years ago. Patient denied use of any other drugs including alcohol, cocaine and heroin. Denied smoking cigarettes. Patient reported that he was arrested and was in [facility] for multiple times for domestic issues. Last time he was in [facility] for about 2 months ago, not on probation. Patient was born in [place], has high school graduation, not working. Patient lives with his maternal grandmother. Never and has no children. His height is 5 feet 8 inches and his weight is 200 pounds. Consultations:: List each consultation separately and include: 1. Reason for request. 2. Findings. 3. Follow-up Summary of Hospital Course include:: 1. Description of specific treatment plan utilized for patients during their course of treatmen. 2. Summarize the time- course for resolution of acute symptoms and/or regressed behaviors. 3. Describe issues identified and worked on during hospitalization. 4. Describe medication utilized. 5. Describe medical problems identified and treated. 6. Reassessment of suicide risk - Diagnosis (1) Schizoaffective disorder, bipolar type Current Visit: Yes Status: Acute - Final Diagnosis (DSM 5) Condition upon Discharge: SERIOUS DSM 5: Schizoaffective disorder bipolar type Disposition: HOME/ ROUTINE Follow-up Treatment Plan: Schizoaffective disorder bipolar type Patient education. Supportive therapy. Depakote 500 mg PO bid Risperdal 4 mg PO BID when necessary medications Increase Haldol 10 mg po BID Prescriptions/Medication Reconciliation: Benztropine [Cogentin] 1 mg PO BID #60 tab Divalproex [Depakote DR] 500 mg PO BID #60 tcp Haloperidol [Haldol] 10 mg PO BID #60 tab risperiDONE [RisperDAL Tab] 2 mg PO BID #60 tab traZODone [Desyrel] 50 mg PO HS #30 tab
== END 2018-03-09 14:37 | disposition home or self-care (01) | DRG 430 ==
LOC: C.ER 05:33 → C.5E 10:49
PROC: GZHZZZZ Group Psychotherapy (ICD-10-PCS; principal; 2018-02-24)
PROC: GZ56ZZZ Individual Psychotherapy, Supportive (ICD-10-PCS; 2018-02-24)
DX: F25.0 Schizoaffective disorder, bipolar type (principal); Z87.891 Personal history of nicotine dependence; T43.596A Underdosing of other antipsychotics and neuroleptics, initial encounter

== ENCOUNTER 2018-04-03 01:03 | Emergency (ER) | payer MEDICAID ==
[2018-04-03 01:03] VITALS: BMI 26.6
--- NOTE | 2018-04-03 02:08 | C.PDOC ---
History Of Present Illness 22 year old male brought to the ED by his family after 5 episodes of nausea and vomiting after he consumed 2 24 oz. Four Lokos. Patient denies any abdominal pain, diarrhea, dysuria/hematuria. Patient does admit to feeling depressed, but denies any SI/HI, hallucinations. He has [facility] on [facility], has been compliant with Haldol PO. Time Seen by Provider: 04/03/18 01:04 Chief Complaint (Nursing): GI Problem History Per: Patient, Family History/Exam Limitations: intoxication Onset/Duration Of Symptoms: Hrs Current Symptoms Are (Timing): Still Present Associated Symptoms: Fever, Nausea, Vomiting. denies: Diarrhea, Urinary Symptoms (dysuria) Additional History Per: Patient, Family Past Medical History Reviewed: Historical Data, Nursing Documentation, Vital Signs Vital Signs: Last Vital Signs Temp 98.3 F 04/03/18 01:09 Pulse 100 H 04/03/18 01:09 Resp 20 04/03/18 01:09 BP 136/86 04/03/18 01:09 Pulse Ox 98 04/03/18 01:09 - Medical History PMH: Anxiety, Depression, Schizophrenia Surgical History: No Surg Hx - [facility] Procedures GROUP PSYCHOTHERAPY (02/24/18) INDIVIDUAL PSYCHOTHERAPY, BEHAVIORAL (06/30/17) INDIVIDUAL PSYCHOTHERAPY, COGNITIVE-BEHAVIORAL (01/06/17) INDIVIDUAL PSYCHOTHERAPY, SUPPORTIVE (02/24/18) Family History: States: No Known Family Hx - Social History Hx Tobacco Use: Yes Hx Alcohol Use: Yes Hx Substance Use: No - Immunization History Hx Tetanus Toxoid Vaccination: No Hx Influenza Vaccination: No Hx Pneumococcal Vaccination: No Review Of Systems Constitutional: Negative for: Fever, Chills Gastrointestinal: Positive for: Nausea, Vomiting. Negative for: Abdominal Pain, Diarrhea Genitourinary: Negative for: Dysuria Musculoskeletal: Negative for: Back Pain Skin: Negative for: Rash Psych: Positive for: Depression. Negative for: Suicidal ideation Physical Exam - Physical Exam Appears: Non-toxic, No Acute Distress, Other (flat affect) Skin: Normal Color, Warm, Dry Head: Normacephalic Eye(s): bilateral: Normal Inspection Oral Mucosa: Moist Neck: Supple Cardiovascular: Rhythm Regular Respiratory: Normal Breath Sounds, No Rales, No Rhonchi, No Wheezing Gastrointestinal/Abdominal: Normal Exam, Bowel Sounds, Soft, No Tenderness Extremity: Normal ROM Neurological/Psych: Oriented x3 Gait: Steady ED Course And Treatment O2 Sat by Pulse Oximetry: 98 (on RA) Pulse Ox Interpretation: Normal Progress Note: Patient given PO Zofran ODT and PO challenged. Reevaluation Time: :45 Reassessment Condition: Improved (Patient reassessed, is resting comfortably and has tolerated PO. On exam, abdomen is soft and nontender. He is AAOx3, ambulating normally and is clinically sober. Patient given Rx for zofran ODT, and he was instructed to follow up with PMD/clinic in 1-2 days. He understands he should return to ED if symptoms worsen.) Disposition Counseled Patient/Family Regarding: Diagnosis, Need For Followup, Rx Given - Disposition Referrals: Prashanth Rogel MD [Primary Care Provider] - Disposition: HOME/ ROUTINE Disposition Time: :45 Condition: STABLE Prescriptions: Ondansetron ODT [Zofran ODT] 1 odt PO BID PRN #15 odt PRN Reason: Nausea/Vomiting Instructions: Nausea and Vomiting, Adult (DC) Forms: [employer] ([place] Islander) Print Language: FRENCH - Clinical Impression Clinical Impression: Nausea & vomiting - Scribe Statement The provider has reviewed the documentation as recorded by the Scribe Provider Attestation: Raquel Saavedra All medical record entries made by the Scribe were at my direction and perso rosy dictated by me. I have reviewed the chart and agree that the record accurately reflects my personal performance of the history, physical exam, medical decision making, and the department course for this patient. I have also personally directed, reviewed, and agree with the discharge instructions and disposition.
[2018-04-03 02:55] VITALS: BP 135/92; PULSE 104; RESP 14; TEMP 98.7
[2018-04-11 10:00] VITALS: O2SAT 98
== END 2018-04-03 02:55 | disposition home or self-care (01) ==
LOC: SUPCPDRO 01:03 → C.ER 01:03
DX: R11.2 Nausea with vomiting, unspecified (principal)

== ENCOUNTER 2018-06-15 15:48 | Emergency (ER) | payer MEDICAID | END 2018-06-15 17:29 | disposition home or self-care (01) | LOC: C.ER 15:48 ==